=== PATIENT | male | born 1970 | race Caucasian/White ===

== ENCOUNTER 2018-10-15 14:56 | Emergency (ER) | payer BC ==
[2018-10-15 15:13] VITALS: BP 117/67; TEMP 98.2
[2018-10-15] MEDS ORDERED: predniSONE 50 MG TAB PO STA (15:47)
[2018-10-15] MEDS ORDERED: KETOROLAC 60 MG/2 ML VIAL IM STA (15:47)
--- NOTE | 2018-10-15 16:12 | XR ---
EXAMINATION TYPE: XR lumbar spine 2 or 3V DATE OF EXAM: 10/15/2018 CLINICAL HISTORY: Back pain TECHNIQUE: Frontal and lateral images of the lumbar spine are obtained. COMPARISON: None FINDINGS: There are 5 lumbar type vertebral bodies identified. The lumbar spine shows satisfactory alignment without evidence of acute fracture or dislocation. Vertebral body heights and disk space he ights are within normal limits. Very small anterior osteophytes are within the lumbar spine. The over lying soft tissue appears unremarkable. IMPRESSION: No acute fracture or dislocation is seen in the lumbar spine.
--- NOTE | 2018-10-15 16:33 | ED ---
General Adult HPI - General Chief complaint: Back Pain/Injury Stated complaint: lower back pain Time Seen by Provider: 10/15/18 15:21 Source: family, RN notes reviewed, old records reviewed Mode of arrival: ambulatory Limitations: no limitations - History of Present Illness Initial comments: 47-year-old male patient with past medical history of chronic lumbar back pain presents to ED with acute exacerbation of right paralumbar back pain. Patient reports that he has some radiation down his posterior leg. Patient states this feels similar to lumbar back pain he has had in the past. Patient denies any recent trauma or falls. Patient has a loss of bowel or bladder control, saddle anesthesia, lower extremity weakness, fevers or chills. Patient states that he is very active for his job. Patient denies any other complaints. Systemic: Pt denies fatigue, fever/chills, rash. Pt denies weakness, night sweats, weight loss. Neuro: Pt denies headache, visual disturbances, syncope or pre-syncope. HEENT: Pt denies ocular discharge or irritation, otalgia, rhinorrhea, pharyngitis or notable lymphadenopathy. Cardiopulmonary: Pt denies chest pain, SOB, heart palpitations, dyspnea on exertion. Abdominal/GI: Pt denies abdominal pain, n/v/d. : Pt denies dysuria, burning w/ urination, frequency/urgency. Denies new onset urinary or bowel incontinence. MSK: Pt denies loss of strength or function in extremities. Neuro: Pt denies new onset weakness, paresthesias. - Related Data Previous Rx's Medication Instructions Recorded Ibuprofen [Motrin] 600 mg PO Q6HR PRN #40 day 10/15/18 predniSONE 50 mg PO DAILY #4 tab 10/15/18 Allergies Allergy/AdvReac Type Severity Reaction Status Date / Time azithromycin [From Zithromax] Allergy Unknown Verified 10/15/18 15:14 codeine Allergy Unknown Verified 10/15/18 15:14 Sulfa (Sulfonamide Allergy Unknown Verified 10/15/18 15:14 Antibiotics) Review of Systems ROS Statement: Those systems with pertinent positive or pertinent negative responses have been documented in the HPI. ROS Other: All systems not noted in ROS Statement are negative. Past Medical History Past Medical History: No Reported History History of Any Multi-Drug Resistant Organisms: None Reported Past Surgical History: Orthopedic Surgery Additional Past Surgical History / Comment(s): right shoulder surgery Past Psychological History: No Psychological Hx Reported Smoking Status: Never smoker Past Alcohol Use History: None Reported Past Drug Use History: None Reported General Exam - General Exam Comments Initial Comments: Constitutional: NAD, AOX3, Pt has pleasant affect. HEENT: NC/AT, trachea midline, neck supple, no lymphadenopathy. Posterior pharynx non erythematous, without exudates. External ears appear normal, without discharge. Mucous membranes moist. Eyes PERRLA, EOM intact. There is no scleral icterus. No pallor noted. Cardiopulmonary: RRR, no murmurs, rubs or gallops, no JVD noted. Lungs CTAB in anterior and posterior chamorro. No peripheral edema. Abdominal exam: Abdomen soft and non-distended. Abdomen non-tender to palpation in all 4 quadrants. Bowel sounds active in LLQ. No hepatosplenomegaly. No ecchymosis Neuro: CN II-XII grossly intact. No nuchal rigidity. MSK: Right paralumbar region mildly tender to palpation. No midline tenderness cervical thoracic lumbar. Bilateral 5 quadriceps psoas strength. 2 out of 4 patellar to his reflex bilaterally. Heel toe walking intact. No posterior calf tenderness bilaterally, homans sign negative bilaterally. Posterior tibialis and radial pulse +2 bilaterally. Sensation intact in upper and lower extremities. Full active ROM in upper and lower extremities, 5/5 stregnth. Limitations: no limitations Course Vital Signs 10/15/18 15:10 Temperature 98.2 F Pulse Rate 55 L Respiratory 18 Rate Blood Pressure 117/67 O2 Sat by Pulse 99 Oximetry Medical Decision Making - Medical Decision Making 47-year-old male patient with past medical history of chronic lumbar back pain presents to ED with acute exacerbation of right paralumbar back pain. Patient reports that he has some radiation down his posterior leg. Patient states this feels similar to lumbar back pain he has had in the past. Patient denies any recent trauma or falls. Patient has a loss of bowel or bladder control, saddle anesthesia, lower extremity weakness, fevers or chills. Patient states that he is very active for his job. Patient denies any other complaints. Pt VSS, afebrile. Physical exma displayed: Right paralumbar region mildly tender to palpation. No midline tenderness cervical thoracic lumbar. Bilateral 5 quadriceps psoas strength. 2 out of 4 patellar to his reflex bilaterally. Heel toe walking intact. Plain film of lumbar spine did not display acute process. Her symptoms improved with administration of Toradol, prednisone. Patient discharged with 4 additional days of prednisone. Patient to follow up with primary care provider as well as orthopedic surgeon. Patient returned ER if condition worsens. Case discussed with Dr. Brown Disposition Clinical Impression: Lumbar back sprain Disposition: HOME SELF-CARE Condition: Stable Instructions (If sedation given, give patient instructions): Acute Low Back Pain (ED) Additional Instructions: Patient to adhere to previously discussed treatment plan and will take medication(s) as directed. Patient to follow up with PCP in 1-2 days. Patient to return to ED if symptoms do not improve. Please follow-up with primary care provider and orthopedic consult 1-2 days. Please take medication as directed. Prescriptions: Ibuprofen [Motrin] 600 mg PO Q6HR PRN #40 day PRN Reason: Pain predniSONE 50 mg PO DAILY #4 tab Is patient prescribed a controlled substance at d/c from ED?: No Referrals: Ramiro Sheldon MD [Primary Care Provider] - 1-2 days Jerome Mcallister DO [Doctor of Osteopathic Medicine] - 1-2 days
[2018-10-15 16:57] VITALS: PULSE 78; RESP 16
== END 2018-10-15 16:56 | disposition home or self-care (01) ==
LOC: EC 14:56
DX: S33.5XXA Sprain of ligaments of lumbar spine, initial encounter (principal); Z88.1 Allergy status to other antibiotic agents; Z88.2 Allergy status to sulfonamides; Z88.5 Allergy status to narcotic agent; X58.XXXA Exposure to other specified factors, initial encounter
CPT/HCPCS: 72100; 99284; 96372; J1885; J7512

== ENCOUNTER → 2018-11-04 | Outpatient (CLI) | payer BC ==
--- NOTE | 2018-11-04 22:22 | MR ---
EXAMINATION TYPE: MR lumbar spine wo con DATE OF EXAM: 11/04/2018 COMPARISON: Lumbar spine x-ray October 15, 2018 HISTORY: Lumbar radiculopathy per order. Chronic low back pain with radiculopathy right lower extremi ty and weakness. Constant low back pain for 3 to 4 years into both lower extremities per patient. TECHNIQUE: Multiplanar, multisequence imaging of the lumbar spine is performed without IV contrast. FINDINGS: Sagittal images of the lumbar spine show vertebral body height to remain satisfactory. Stra ightening of lumbar spine is redemonstrated. There is multilevel disc desiccation with mild disc spac e narrowing L4-L5 level redemonstrated. The conus medullaris is normal in position and signal in the inferior L1 level. The bone marrow signal intensity is overall somewhat low signal but remains grea ter than skeletal muscle on T1-weighted images. Small hemangioma suspected L4 level on sagittal image 8. Mild multilevel anterior spurring is seen. Axial images show the T12-L1 and L1-L2 levels to appear within normal limits. Axial images at the L2-L3 and the L3-L4 level shows mild broad-based posterior disc protrusion minima lly effacing anterior thecal sac with right foraminal disc protrusion component at L3-L4 level causin g asymmetric moderate right-sided neural foraminal narrowing and encroachment on right L3 nerve axial image 19 and sagittal image 11 along the anterior-inferior aspect. Axial images at the L4-L5 level show mild/moderate broad-based disc bulge effacing the anterior theca l sac, bilateral neural foramina are patent. Axial images at the L5-S1 level mild facet degenerative changes bilaterally. There is central disc pr otrusion mildly facing anterior thecal sac. Bilateral neural foramina are patent. There are simple appearing 3.3 cm thin-walled cyst posteriorly in the right kidney mid to lower pole level axial image 25. IMPRESSION: Straightening of lumbar spine with multilevel degenerative changes mid to lower lumbar le vels as detailed above. Attention to L3-L4 level where right foraminal disc protrusion component appe ars to be encroaching on the exiting right L3 nerve.
== END ==
LOC: RADMRIMAIN 20:25
PROVIDERS: ATTEND Physician Assistant Surgical
DX: M48.061 Spinal stenosis, lumbar region without neurogenic claudication (principal); M47.26 Other spondylosis with radiculopathy, lumbar region; M51.16 Intervertebral disc disorders with radiculopathy, lumbar region; M51.17 Intervertebral disc disorders with radiculopathy, lumbosacral region
CPT/HCPCS: 72148

== ENCOUNTER → 2021-01-10 | Outpatient (CLI) | payer BC ==
--- NOTE | 2021-01-10 07:19 | US ---
EXAMINATION TYPE: US kidneys/renal and bladder DATE OF EXAM: 01/10/2021 COMPARISON: NONE CLINICAL HISTORY: N28.9 Disorder of kidney and ureter, unspecified. EXAM MEASUREMENTS: Right Kidney: 12.5 x 5.8 x 6.4 cm Left Kidney: 12.7 x 6.5 x 6.0 cm Right Kidney: lower/lateral cyst measures 2.9 x 3.1 x 2.7 cm Left Kidney: No hydronephrosis or masses seen Bladder: wnl Bilateral Jets seen: Yes There is no evidence for hydronephrosis at this point in time. No nephrolithiasis is seen. No ernestina s are identified. The urinary bladder is anechoic. Bilateral ureteral jets are seen. IMPRESSION: Right renal cyst.
== END | disposition home or self-care (01) ==
LOC: RADUSWWP 06:55
PROVIDERS: ATTEND Internal Medicine
DX: N28.1 Cyst of kidney, acquired (principal)
CPT/HCPCS: 76770

== ENCOUNTER → 2023-05-14 | Outpatient (CLI) | payer BC ==
--- NOTE | 2023-05-16 10:44 | MR ---
EXAMINATION TYPE: MR knee RT wo con DATE OF EXAM: 05/14/2023 COMPARISON: None HISTORY: RT and LT outer knee pain x2 months due to running/ No prev on pacs TECHNIQUE: Multiplanar, multisequence imaging of the right knee is performed without IV contrast. FINDINGS: MEDIAL MENISCUS: Oblique tear posterior horn medial meniscus. Anterior horn is intact. LATERAL MENISCUS: Myxoid degeneration anterior horn lateral meniscus. Oblique tear posterior horn lat eral meniscus. CRUCIATE LIGAMENTS: The anterior and posterior cruciate ligaments are intact and unremarkable. COLLATERAL LIGAMENTS: The medial collateral ligament and lateral collateral ligament complex are inta ct and unremarkable. Adjacent to the medial collateral ligament is elongate ganglion cyst measuring 3 .9 cm in length by 7 mm AP dimension. EXTENSOR MECHANISM: Visualized quadriceps and patellar tendons are intact. EFFUSION: No significant suprapatellar joint effusion. POPLITEAL CYST: No popliteal/aviles cyst. TRICOMPARTMENT SPACES: Mild degenerative joint space narrowing medial tibiofemoral joint space. CARTILAGE: Cartilaginous thinning lateral tibial plateau. BONE MARROW SIGNAL: No focal abnormal marrow signal is appreciated. OTHER: No additional significant abnormality is appreciated. IMPRESSION: 1. Oblique tear posterior horn medial meniscus and posterior horn lateral meniscus. 2. Ganglion cyst adjacent to the posterior aspect of the medial collateral ligament.
--- NOTE | 2023-05-16 10:46 | MR ---
EXAMINATION TYPE: MR knee LT wo con DATE OF EXAM: 05/14/2023 COMPARISON: None HISTORY: RT and LT outer knee pain x2 months due to running/ No prev on pacs TECHNIQUE: Multiplanar, multisequence imaging of the left knee is performed without IV contrast. FINDINGS: MEDIAL MENISCUS: Anterior and posterior horns are intact without tear. LATERAL MENISCUS: Anterior and posterior horns are intact without tear. CRUCIATE LIGAMENTS: The anterior and posterior cruciate ligaments are intact and unremarkable. COLLATERAL LIGAMENTS: The medial collateral ligament and lateral collateral ligament complex are inta ct and unremarkable. EXTENSOR MECHANISM: Visualized quadriceps and patellar tendons are intact. EFFUSION: No significant suprapatellar joint effusion. POPLITEAL CYST: Small Velásquez's cyst measuring 1 cm. TRICOMPARTMENT SPACES: Mild narrowing medial tibiofemoral joint space. CARTILAGE: Intact BONE MARROW SIGNAL: No focal abnormal marrow signal is appreciated. OTHER: No additional significant abnormality is appreciated. IMPRESSION: Baby Velásquez's cyst otherwise unremarkable study.
== END | disposition home or self-care (01) ==
LOC: RADMRIMAIN 06:00
PROVIDERS: ATTEND Orthopaedic Surgery
DX: M23.321 Other meniscus derangements, posterior horn of medial meniscus, right knee (principal); M23.351 Other meniscus derangements, posterior horn of lateral meniscus, right knee; M67.461 Ganglion, right knee; M71.22 Synovial cyst of popliteal space [Baker], left knee; M23.8X1 Other internal derangements of right knee; M17.0 Bilateral primary osteoarthritis of knee; M23.8X2 Other internal derangements of left knee; M23.304 Other meniscus derangements, unspecified medial meniscus, left knee